=== PATIENT | male | born 1955 | race Caucasian/White ===

== ENCOUNTER → 2022-04-16 11:07 | Outpatient (BNVA) | payer MEDICARE, SELFPAY | PROVIDERS: Visit Provider Emergency Medicine | DX: R68.89 Other general symptoms and signs (principal); A08.4 Viral intestinal infection, unspecified; S29.012A Strain of muscle and tendon of back wall of thorax, initial encounter; R19.7 Diarrhea, unspecified | CPT/HCPCS: 87400 ==

== ENCOUNTER → 2022-04-17 09:15 | Outpatient (BNVA) | payer MEDICARE, SELFPAY | PROVIDERS: Visit Provider Emergency Medicine | DX: R19.7 Diarrhea, unspecified (principal) | CPT/HCPCS: 87493 ==